=== PATIENT | male | born 1960 | race Caucasian/White ===

== ENCOUNTER → 2019-12-17 15:10 | Outpatient (BNVA) | payer SELFPAY | PROVIDERS: Family Provider Nurse Practitioner Family; PCP Nurse Practitioner Family; Visit Provider Specialist | DX: M25.562 Pain in left knee (principal); M25.561 Pain in right knee; G89.29 Other chronic pain | CPT/HCPCS: 73560; 73565 ==

== ENCOUNTER 2021-09-01 05:36 | Inpatient (IN) | payer MEDICARE, SELFPAY ==
[2021-09-01] VITALS (120 sets, daily range): BP systolic 103–184; BP diastolic 66–111; PULSE 56–104; RESP 9–24; TEMP 36.8; O2SAT 90–97; BMI 26.9
--- NOTE | 2021-09-01 05:39 | ECG_ITS ---
[facility] Test Date: 2021-09-01 Pat Name: Oscar Dotson Department: Room: Gender: Male Nozzleman: : 1960 Requested By: Kings Lobo Order Number: [id number] Reading MD: Hayde Santana M.D. Measurements Intervals [place] Rate: 72 P: 34 ID: 158 QRS: 29 QRSD: 94 T: 48 QT: 418 QTc: 461 Interpretive Statements SINUS RHYTHM NONSPECIFIC ST & T-WAVE ABNORMALITY No previous ECG available for comparison Electronically Signed On 09-02-2021 7:34:37 SNACK STEWARDESS by Hayde Santana M.D. [id number]
--- NOTE | 2021-09-01 05:39 | XRR_ITS ---
PROCEDURE INFORMATION: Exam: XR Chest Exam date and time: 09/01/2021 5:39 AM Age: 60 years old Clinical indication: Radiating and other: Center and radiating to both arms; Patient HX: Woke up this morning to sharp pain in center of chest and radiating to both arms. Slight nausea; Additional info: Cp TECHNIQUE: Imaging protocol: XR of the chest. Views: 1 view. COMPARISON: No relevant prior studies available. FINDINGS: Lungs: No consolidation. Pleural spaces: Unremarkable. No pleural effusion. No pneumothorax. Heart/Mediastinum: No cardiomegaly. Bones/joints: No acute fracture. XR/XR chest 1V portable [id number] IMPRESSION: No acute findings. Radiation Dose CTDIVOL = (mGy): DLP = (mGy-cm)
--- NOTE | 2021-09-01 05:40 | ED_ITS ---
Documented by User: Kings Lobo MD 09/01/21 05:46 HPI - Chest Pain General: Chief Complaint: Chest Pain Stated Complaint: CP Time Seen by Provider: 09/01/21 05:39 Source: patient and EMS Mode of arrival: EMS Limitations: no limitations History of Present Illness: HPI narrative: 60-year-old male states he woke up this morning with sharp pain in the center of his chest radiating to both arms. Patient was given aspirin nitro in route states that his pain is since resolved. He denies any shortness of breath he had some slight nausea denies any di aphoresis. He has no history of heart disease. He is a smoker. Associated symptoms: Deny abdominal pain, dyspnea, fever(s), nausea or vomiting Review of Systems Const: Denies: fever(s), chills, body aches or change in appetite Eyes: Denies: blurry vision or eye discomfort ENMT: Denies: throat pain or dental pain Card: Reports: chest pain Resp: Denies: dyspnea GI: Denies: abdominal pain, nausea, vomiting or diarrhea : Denies: dysuria Musc: Denies: neck pain or back pain Skin/Breast: Denies: rash Neuro: Denies: headache(s) Psych: Denies: depression Jose L/Lymph: Denies: easy bruising All/Imm: Denies: urticaria PFSH ED PFSH: Medical History (Updated 09/04/21 @ 06:41 by Lizandro Wang DO) DJD (degenerative joint disease) Non-ST elevation myocardial infarction (NSTEMI) Surgical History (Updated 09/01/21 @ 08:40 by Gautam Do MD) History of appendectomy History of knee surgery Family History (Updated 09/01/21 @ 08:40 by Gautam Do MD) Other Cancer Dementia Social History Smoking and tobacco status: current every day smoker cigarettes Packs smoked per day: 1 Alcohol intake: never Physical Exam Const: COMMON NORMALS: no acute distress, patient oriented x3 and healthy appearing HENMT: COMMON NORMALS: normocephalic and atraumatic HEAD & SCALP: normocephalic and atraumatic Eye: COMMON NORMALS: Equal, round and reactive pupils present and EOMs intact bilaterally PUPIL: Yes Equal, round and reactive pupils present Neck/C-Spine: COMMON NORMALS: full ROM and supple Chest: COMMONS NORMALS: normal inspection of the chest and normal palpation of entire chest wall Resp: COMMON NORMALS: normal respiratory effort, No retractions, No use of accessory muscles and clear to auscultation bilaterally AUSCULTATION: clear to auscultation bilaterally Cardio: COMMON NORMALS: regular rate, regular rhythm and No murmurs present (Cardio) RATE: regular rate RHYTHM: regular rhythm GI: COMMON NORMALS: Normal to inspection, nondistended, normoactive bowel sounds present, Soft to palpation, non-tender and no masses PALPATION: Yes Soft to palpation Extremity: COMMON NORMALS: normal to inspection and full ROM Neuro: COMMON NORMALS: patient oriented x3, moves all extremities and no focal motor deficits Psych: COMMON NORMALS: mental status grossly normal, Normal thought process present and cooperative THOUGHT PROCESS: Normal thought process present Skin: COMMON NORMALS: no rashes or lesions noted and no wounds GENERAL SKIN EXAM: no rashes or lesions noted Course Vital Signs: Vital signs: Vital Signs Temperature 97.7 F 09/02/21 11:00 Pulse Rate 67 09/02/21 11:00 Respiratory Rate 16 09/02/21 11:00 Blood Pressure 131/86 09/02/21 11:00 Pulse Oximetry 91 09/02/21 11:00 MDM - Chest Pain Lab Data: Labs: Lab Results 09/01/21 09/01/21 09/01/21 04:50 04:50 04:50 WBC 13.9 10^3/uL H 10 ^3/uL (4.0-10.0) RBC 5.26 10^6/uL 10^6 /uL (4.1-5.3) Hgb 15.9 g/dL g/dL (11.7-16.6) Hct 46.6 % % (42.0-52.0) MCV 88.6 fl fl (80-94) MCH 30.2 pg pg (28.0-34.0) MCHC 34.1 g/dL g/dL (30.0-36.0) RDW 12.3 % % (12.1-15.1) Plt Count 236 10^3/cmm 10^3 /cmm (130-400) MPV 12.5 fL H fL (7.4-10.4) Neut % (Auto) 31.7 % % Lymph % (Auto) 58.7 % % [place] % (Auto) 7.7 % % Eos % (Auto) 1.1 % % Baso % (Auto) 0.5 % % Neut # (Auto) 4.41 10^3/uL 10^3 /uL (1.8-7.7) Lymph # (Auto) 8.2 10^3/uL H 10^ 3/uL (0.8-4.8) [place] # (Auto) 1.1 10^3/uL H 10^ 3/uL (0.2-0.9) Eos # (Auto) 0.2 10^3/uL 10^3/ uL (0.0-0.8) Baso # (Auto) 0.1 10^3/uL 10^3/ uL (0.0-0.1) Nucleated RBC % (a uto) 0 % % Nucleated RBCs # 0.0 /100WBC /100W BC Sodium 138 mmol/L mmol/L (136-145) Potassium 3.7 mmol/L mmol/L (3.5-5.1) Chloride 101 mmol/L mmol/L (98-107) Carbon Dioxide 25 mmol/L mmol/L (22-29) Anion Gap 15.7 (5-19) BUN 12 mg/dL mg/dL (8-23) Creatinine 1.1 mg/dL mg/dL (0.7-1.2) GFR Calculation 68.3 mL/min L mL/ min (90-130) Glucose 143 mg/dL H mg/dL (65-115) Estimat Average Gl ucose Hemoglobin A1c Calculated Osmolal ity 288 mOsm/kg mOsm/ kg (285-295) Calcium 9.4 mg/dL mg/dL (8.5-10.5) Total Bilirubin 0.4 mg/dL mg/dL (0.15-1.2) AST 22 U/L U/L (0-40) ALT 27 U/L U/L (0-41) Alkaline Phosphata se 77 IU/L IU/L (40-130) Troponin T Baselin e 20 ng/L H ng/L (0-15) Troponin T 120 Min la posta Delta Troponin T Total Protein 6.6 g/dL g/dL (6.6-8.7) Albumin 4.3 g/dL g/dL (3.5-5.2) Globulin 2.3 g/dL g/dL (1.3-4.6) TSH 09/01/21 09/01/21 09/01/21 04:50 04:50 06:50 WBC RBC Hgb Hct MCV MCH MCHC RDW Plt Count MPV Neut % (Auto) Lymph % (Auto) [place] % (Auto) Eos % (Auto) Baso % (Auto) Neut # (Auto) Lymph # (Auto) [place] # (Auto) Eos # (Auto) Baso # (Auto) Nucleated RBC % (a uto) Nucleated RBCs # Sodium Potassium Chloride Carbon Dioxide Anion Gap BUN Creatinine GFR Calculation Glucose Estimat Average Gl ucose 111 Hemoglobin A1c 5.5 % % (4.0-6.0) Calculated Osmolal ity Calcium Total Bilirubin AST ALT Alkaline Phosphata se Troponin T Baselin e Troponin T 120 Min la posta 80.57 ng/L H ng/L (0-15) Delta Troponin T 60.57 ABS# H* ABS # (0-10) Total Protein Albumin Globulin TSH 2.21 uIU/mL uIU/m L (0.27-4.20) EKG Data^: EKG 1: Attestation: I personally reviewed and interpreted this EKG as follows: EKG interpretation date: 09/01/21 EKG interpretation time: 05:38 Interpretation: nsr hr [address] or t wave qrs 92 qtc 435 Discharge Plan Discharge Patient Disposition: Admitted As Inpatient Admit Provider: Ibis Ellis Clinical Impression: Unstable angina pectoris, Non-ST elevation VA (NSTEMI) Condition: Stable Discharge Diet: Cardiac Discharge Activity: Increase activity as tolerated Coding Level of Care Code ED Sewing Machine Operator Zipper for Chg Fwd Exam Comprehensive Documented by User: Lizandro Wang DO 09/04/21 06:42 HPI - Chest Pain General: Chief Complaint: Chest Pain Stated Complaint: CP Time Seen by Provider: 09/01/21 05:39 History of Present Illness: HPI narrative: 60-year-old male assumed care at change of shift. Patient continues to have chest pain EKG is repeated see below. Dr. Lobo's notes reviewed. [facility] ED PFSH: Medical History (Updated 09/04/21 @ 06:41 by Lizandro Wang DO) DJD (degenerative joint disease) Non-ST elevation myocardial infarction (NSTEMI) Surgical History (Updated 09/01/21 @ 08:40 by Gautam Do MD) History of appendectomy History of knee surgery Family History (Updated 09/01/21 @ 08:40 by Gautam Do MD) Other Cancer Dementia Social History Smoking and tobacco status: current every day smoker cigarettes Packs smoked per day: 1 Alcohol intake: never Physical Exam Const: COMMON NORMALS: no acute distress GENERAL APPEARANCE: cooperative and comfortable ORIENTATION/CONSCIOUSNESS: Yes awake, Yes oriented to person, Yes oriented to place and Yes oriented to time HENMT: COMMON NORMALS: normocephalic, atraumatic and hearing grossly normal bilaterally HEAD & SCALP: normocephalic and atraumatic Neck/C-Spine: COMMON NORMALS: no JVD Resp: COMMON NORMALS: normal respiratory effort, No retractions, No use of accessory muscles and clear to auscultation bilaterally AUSCULTATION: clear to auscultation bilaterally Cardio: COMMON NORMALS: no JVD, regular rate, regular rhythm and No murmurs present (Cardio) RATE: regular rate RHYTHM: regular rhythm GI: COMMON NORMALS: Soft to palpation and No hepatosplenomegaly present AUSCULTATION: Yes normoactive bowel sounds PALPATION: Yes Soft to palpation, No Tenderness to palpation present (GI), No Guarding due to palpation present (GI) and Yes No hepatosplenomegaly present Extremity: COMMON NORMALS: normal to inspection, capillary refill normal, no clubbing, cyanosis or edema, no calf tenderness and no pedal edema Neuro: SENSORIUM/ORIENTATION: Yes oriented to person, Yes oriented to place and Yes oriented to time Skin: COMMON NORMALS: no rashes or lesions noted GENERAL SKIN EXAM: no rashes or lesions noted Course Vital Signs: Vital signs: Vital Signs Temperature 97.7 F 09/02/21 11:00 Pulse Rate 67 09/02/21 11:00 Respiratory Rate 16 09/02/21 11:00 Blood Pressure 131/86 09/02/21 11:00 Pulse Oximetry 91 09/02/21 11:00 MDM - Chest Pain MDM Narrative: Medical decision making narrative: At change of shift patient is continuing to have pain. Care assumed staff report he was complaining of worsening chest pain. Repeat EKG now shows very subtle ST elevation in V5 and 6 where previously there had been ST depression. There is no other ST elevation noted. The degree of ST elevation in V5 and 6 is very small technically does not fully meet criteria. However because it seems to be evolving went ahead and gave him Plavix and heparin. We will start him on a nitro drip we have also given him another dose of morphine. EKG was shown to Dr. Ellis. He agrees he still feels this does not meet criteria for STEMI and recommends continuing work -up. Discussed with hospitalist. Patient continues to have chest pain. We are admitting him we did asked Dr. Gutierrez to come and see the patient. Dr. Ellis did see the patient since he is continue to chest plan is planning on taking directly to the Air Moving Technician. Lab Data: Labs: Lab Results 09/01/21 09/01/21 09/01/21 04:50 04:50 04:50 WBC 13.9 10^3/uL H 10 ^3/uL (4.0-10.0) RBC 5.26 10^6/uL 10^6 /uL (4.1-5.3) Hgb 15.9 g/dL g/dL (11.7-16.6) Hct 46.6 % % (42.0-52.0) MCV 88.6 fl fl (80-94) MCH 30.2 pg pg (28.0-34.0) MCHC 34.1 g/dL g/dL (30.0-36.0) RDW 12.3 % % (12.1-15.1) Plt Count 236 10^3/cmm 10^3 /cmm (130-400) MPV 12.5 fL H fL (7.4-10.4) Neut % (Auto) 31.7 % % Lymph % (Auto) 58.7 % % [place] % (Auto) 7.7 % % Eos % (Auto) 1.1 % % Baso % (Auto) 0.5 % % Neut # (Auto) 4.41 10^3/uL 10^3 /uL (1.8-7.7) Lymph # (Auto) 8.2 10^3/uL H 10^ 3/uL (0.8-4.8) [place] # (Auto) 1.1 10^3/uL H 10^ 3/uL (0.2-0.9) Eos # (Auto) 0.2 10^3/uL 10^3/ uL (0.0-0.8) Baso # (Auto) 0.1 10^3/uL 10^3/ uL (0.0-0.1) Nucleated RBC % (a uto) 0 % % Nucleated RBCs # 0.0 /100WBC /100W BC Sodium 138 mmol/L mmol/L (136-145) Potassium 3.7 mmol/L mmol/L (3.5-5.1) Chloride 101 mmol/L mmol/L (98-107) Carbon Dioxide 25 mmol/L mmol/L (22-29) Anion Gap 15.7 (5-19) BUN 12 mg/dL mg/dL (8-23) Creatinine 1.1 mg/dL mg/dL (0.7-1.2) GFR Calculation 68.3 mL/min L mL/ min (90-130) Glucose 143 mg/dL H mg/dL (65-115) Estimat Average Gl ucose Hemoglobin A1c Calculated Osmolal ity 288 mOsm/kg mOsm/ kg (285-295) Calcium 9.4 mg/dL mg/dL (8.5-10.5) Total Bilirubin 0.4 mg/dL mg/dL (0.15-1.2) AST 22 U/L U/L (0-40) ALT 27 U/L U/L (0-41) Alkaline Phosphata se 77 IU/L IU/L (40-130) Troponin T Baselin e 20 ng/L H ng/L (0-15) Troponin T 120 Min la posta Delta Troponin T Total Protein 6.6 g/dL g/dL (6.6-8.7) Albumin 4.3 g/dL g/dL (3.5-5.2) Globulin 2.3 g/dL g/dL (1.3-4.6) TSH 09/01/21 09/01/21 09/01/21 04:50 04:50 06:50 WBC RBC Hgb Hct MCV MCH MCHC RDW Plt Count MPV Neut % (Auto) Lymph % (Auto) [place] % (Auto) Eos % (Auto) Baso % (Auto) Neut # (Auto) Lymph # (Auto) [place] # (Auto) Eos # (Auto) Baso # (Auto) Nucleated RBC % (a uto) Nucleated RBCs # Sodium Potassium Chloride Carbon Dioxide Anion Gap BUN Creatinine GFR Calculation Glucose Estimat Average Gl ucose 111 Hemoglobin A1c 5.5 % % (4.0-6.0) Calculated Osmolal ity Calcium Total Bilirubin AST ALT Alkaline Phosphata se Troponin T Baselin e Troponin T 120 Min la posta 80.57 ng/L H ng/L (0-15) Delta Troponin T 60.57 ABS# H* ABS # (0-10) Total Protein Albumin Globulin TSH 2.21 uIU/mL uIU/m L (0.27-4.20) Discharge Plan Discharge Patient Disposition: Admitted As Inpatient Admit Provider: Ibis Ellis Clinical Impression: Unstable angina pectoris, Non-ST elevation VA (NSTEMI) Condition: Stable Discharge Diet: Cardiac Discharge Activity: Increase activity as tolerated Coding Level of Care Code ED Sewing Machine Operator Zipper for Deneen Fwd Exam Comprehensive
--- NOTE | 2021-09-01 05:46 | ECG_ITS ---
[facility] Test Date: 2021-09-01 Pat Name: Oscar Dotson Department: Room: Gender: Male Fabric Designer: : 1960 Requested By: Kings Lobo Order Number: [id number] Carisa MD: Hadye Santana M.D. Measurements Intervals [place] Rate: 73 P: 10 VA: 160 QRS: 32 QRSD: 92 T: 36 QT: 409 QTc: 452 Interpretive Statements SINUS RHYTHM MINIMAL VOLTAGE CRITERIA FOR LVH, CONSIDER NORMAL VARIANT [MEETS CRITERIA IN ONE OF: R(aVL), S(V1), R(V5), R(V5/V6)+S(V1)] NONSPECIFIC ST & T-WAVE ABNORMALITY No previous ECG available for comparison Electronically Signed On 09-02-2021 7:34:54 FOREMAN OR SUPERVISOR AND OPERATOR by Hayde Santana M.D. [id number]
[2021-09-01] MEDS: nitroglycerin 0.4 mg sublingual Tablet SUBLINGUAL (05:50)
[2021-09-01 05:59] LABS: Basophils # 0.1 10^3/uL (0.0-0.1); Basophils % 0.5 %; Eosinophils # 0.2 10^3/uL (0.0-0.8); Eosinophils % 1.1 %; Hematocrit 46.6 % (42.0-52.0); Hemoglobin 15.9 g/dL (11.7-16.6); Lymphocytes # 8.2 10^3/uL (0.8-4.8); Lymphocytes % 58.7 %; Mean Corpuscular HGB Conc 34.1 g/dL (30.0-36.0); Mean Corpuscular Hemoglobin 30.2 pg (28.0-34.0); Mean Corpuscular Volume 88.6 fl (80-94); Mean Platelet Volume 12.5 fL (7.4-10.4); Monocytes # 1.1 10^3/uL (0.2-0.9); Monocytes % 7.7 %; Neutrophils # 4.41 10^3/uL (1.8-7.7); Neutrophils % 31.7 %; Nucleated Red Blood Cells % 0 %; Platelet Count 236 10^3/cmm (130-400); Red Blood Count 5.26 10^6/uL (4.1-5.3); Red Cell Distribution Width 12.3 % (12.1-15.1); White Blood Count 13.9 10^3/uL (4.0-10.0)
[2021-09-01] MEDS: heparin 5,000 unit/mL INJ 1 mL 4000 UNIT IVP (06:03)
[2021-09-01] MEDS: clopidogrel 300 mg Tablet 600 MG PO (06:04)
[2021-09-01] MEDS: ondansetron 2 mg/ML SDV 2 mL 4 MG IVP (06:04)
[2021-09-01] MEDS: morphine 4 mg/mL SDV 1 mL IVP ×2 (06:04→06:38)
[2021-09-01] MEDS: nitroglycerin drip 50 MG/250 ML PREMIX IV (06:11)
[2021-09-01 06:12] LABS: Alanine Aminotransferase 27 U/L (0-41); Albumin Level 4.3 g/dL (3.5-5.2); Alkaline Phosphatase 77 IU/L (40-130); Anion Gap 15.7 (5-19); Aspartate Amino Transferase 22 U/L (0-40); Blood Urea Nitrogen 12 mg/dL (8-23); Calcium 9.4 mg/dL (8.5-10.5); Carbon Dioxide 25 mmol/L (22-29); Chloride 101 mmol/L (98-107); Globulin 2.3 g/dL (1.3-4.6); Glomerular Filtration Rate 68.3 mL/min (90-130); Glucose 143 mg/dL (65-115); Osmolality Calculated 288 mOsm/kg (285-295); Potassium 3.7 mmol/L (3.5-5.1); Sodium 138 mmol/L (136-145); Total Bilirubin 0.4 mg/dL (0.15-1.2); Total Protein 6.6 g/dL (6.6-8.7)
[2021-09-01 06:23] LABS: Slide Review Slide Review Perform
[2021-09-01 06:31] LABS: Troponin(5th) Baseline 20 ng/L (0-15)
[2021-09-01 07:14] LABS: Troponin 5 2HR 80.57 ng/L (0-15)
[2021-09-01 07:17] LABS: Troponin 5 2HR Delta 60.57 ABS# (0-10)
[2021-09-01] MEDS: morphine 4 mg/mL SDV 1 mL 2 MG IVP (07:24)
--- NOTE | 2021-09-01 07:39 | ECG_ITS ---
[facility] Test Date: 2021-09-01 Pat Name: Oscar Dotson Department: Room: Gender: Male Wheel Press Clerk: : 1960 Requested By: Kings Lobo Order Number: [id number] Carisa MD: Hayde Santana M.D. Measurements Intervals [place] Rate: 59 P: -3 OK: 155 QRS: 23 QRSD: 97 T: -50 QT: 444 QTc: 442 Interpretive Statements SINUS BRADYCARDIA WITH OCCASIONAL VENTRICULAR PREMATURE COMPLEXES NONSPECIFIC ST & T-WAVE ABNORMALITY Compared to ECG 09/01/2021 05:51:02 Ventricular premature complex(es) now present Sinus rhythm no longer present T-wave abnormality still present Electronically Signed On 09-02-2021 7:41:56 BREAKFAST MANAGER by Hayde Santana M.D. [id number]
--- NOTE | 2021-09-01 08:21 | USCV_ITS ---
Edwardwillis Oscar Age: 60 Gender: M : 1960 Exam Date: 09/01/2021 13:56 Ordering Phys: Gautam Do MD Technologist: Daiana Fairbanks Exam Location: [facility] – [place] Indication: AK WITH STENT PLACEMENT BP: 103 / 69 HR: 72 Rhythm: Sinus Technical Quality: Adequate MEASUREMENTS (Male / Female) Normal Values 2D ECHO LV Diastolic Diameter PLAX 4.6 cm 4.2 - 5.9 / 3.9 - 5.3 cm LV Systolic Diameter PLAX 3.1 cm LV Chamber Size 4.4 cm IVS Diastolic Thickness 1.2 cm 0.6 - 1.0 / 0.6 - 0.9 cm IVS Systolic Thickness 1.5 cm LVPW Diastolic Thickness 1.3 cm 0.6 - 1.0 / 0.6 - 0.9 cm LVPW Systolic Thickness 1.4 cm RV Chamber Size 3.3 cm LVOT Diameter 2.0 cm LV Ejection Fraction 2D Teich 59.9 % LV Ejection Fraction MOD 2C 63.4 % LV Ejection Fraction 2C AL 61.7 % LA Diameter 3.5 cm LA Width 3.5 cm LA Height 4.6 cm RA Width 3.4 cm RA Height 4.4 cm Aorta at Sinotubular Diameter 3.4 cm M-MODE LV Diastolic Diameter MM 4.7 cm 4.2 - 5.9 / 3.9 - 5.3 cm LV Systolic Diameter MM 2.9 cm LV Ejection Fraction MM Teich 69.0 % IVS Diastolic Thickness MM 0.8 cm 0.6 - 1.0 / 0.6 - 0.9 cm IVS Systolic Thickness MM 1.3 cm LVPW Diastolic Thickness MM 0.7 cm 0.6 - 1.0 / 0.6 - 0.9 cm LVPW Systolic Thickness MM 1.5 cm Aortic Annulus Diameter 3.8 cm LA Ao Ratio MM 1.2 MV E Point Septal Separation 0.5 cm DOPPLER AV Peak Velocity 193.0 cm/s LVOT Peak Velocity 76.0 cm/s AV Area Cont Eq vti 1.2 cm squared AV Area Cont Eq pk 1.2 cm squared MV Area PHT 3.1 cm squared Mitral E to A Ratio 1.0 MV E' Velocity 37.5 cm/s Mitral E to MV E' Ratio 8.6 Mitral E to LV E' Lateral Ratio 8.8 Mitral E to LV E' Septal Ratio 8.4 TR Peak Velocity 232.8 cm/s TR Peak Gradient 21.7 mmHg TR Mean Velocity 169.2 cm/s TR Mean Gradient 13.9 mmHg TR Velocity Time Integral 69.6 cm TV Peak E Velocity 57.0 cm/s Right Atrial Pressure 3.0 mmHg Pulmonary Artery Systolic Pressu 24.7 mmHg PV Peak Velocity 55.0 cm/s RV Acceleration Time 0.1 s RV Ejection Time 0.3 s RV AcT/ET 0.2 FINDINGS Left Ventricle Normal LV size ejection fraction of 60%. No gross wall motion abnormalities noted. Right Ventricle The right ventricle is normal in size and function. Right Atrium The right atrium is normal in size. Left Atrium The left atrium is normal in size. Mitral Valve Mild mitral annular calcification. Mild mitral valve regurgitation. Aortic Valve Minimally thickened aortic valve.mild aortic valve regurgitation. Tricuspid Valve Trace tricuspid valve regurgitation. Pulmonic Valve No gross abnormalities noted Pericardium Normal pericardium without effusion. Aorta Normal ascending aorta dimension. CONCLUSIONS Normal LV size ejection fraction of 60%. No gross wall motion abnormalities noted. Mild mitral annular calcification. Mild mitral valve regurgitation. Features of aortic valve sclerosis. Mild aortic valve regurgitation. Trace tricuspid valve regurgitation. Estimated pulmonary artery peak systolic pressure 25 mmHg. There is no pericardial effusion. There are no intracardiac masses. No similar previous studies are available for comparison Dr Heather Stephens MD [facility] (Electronically Signed) Final Date: 01 September 2021 17:35 S
--- NOTE | 2021-09-01 08:29 | P.HP_ITS ---
Providers/Chief Complaint Primary Care Provider: Mukesh Obando Chief Complaint: CP History of Present Illness Oscar Dotson is a 60 year old male who presented to the hospital via EMS with concerns of chest discomfort. He reports he had some chest discomfort radiating down his left arm, described as tight or pressure yesterday after going to [employer]. He initially thought this was heartburn and it went away. He was awakened from sleep around 3 AM or so with similar discomfort that was severe. In route he received some nitroglycerin, as well as an aspirin which helped some. At the emergency department he was placed on a nitroglycerin drip, and heparinized. He was also loaded with Plavix. Patient reports the discomfort is improved, but still present around 12/31. He has never had a history of coronary disease. Did have diuresis with the no shortness of breath or nausea. Does have a personal history of Covid, back in November. Has been vaccinated with one in the series. No current cough or fever. Review of Systems General: Reports: 10 or more systems reviewed and unremarkable except in HPI and below Const: Denies: fever(s) Eyes: Denies: change in vision ENMT: Denies: throat pain Card: Reports: chest pain Resp: Denies: dyspnea GI: Denies: abdominal pain, nausea or vomiting : Denies: flank pain Musc: Denies: neck pain Skin/Breast: Denies: rash Neuro: Denies: headache(s) Psych: Denies: anxiety Endo: Denies: polyuria Jose L/Lymph: Denies: easy bruising All/Imm: Denies: urticaria Medications/Allergies Home Medications Medication Instructions Recorded Confirmed Last Taken Type aspirin [Aspir-81] 324 mg PO ONCE 09/01/21 09/01/21 09/01/21 History ibuprofen 600 mg PO Q4H PRN 09/01/21 09/01/21 Unknown History Allergies Allergy/AdvReac Type Severity Reaction Status Date / Time No Known Allergies Allergy Verified 09/01/21 08:38 PFSH Acute PFSH: Medical History (Updated 09/01/21 @ 08:45 by Gautam Do MD) DJD (degenerative joint disease) Surgical History (Updated 09/01/21 @ 08:40 by Gautam Do MD) History of appendectomy History of knee surgery Family History (Updated 09/01/21 @ 08:40 by Gautam Do MD) Other Cancer Dementia Social History Smoking and tobacco status: current every day smoker cigarettes Packs smoked per day: 1 Alcohol intake: never Vitals/I&O/Wt Last Vital Signs Pulse 60 09/01/21 07:31 Resp 18 09/01/21 07:31 BP 103/69 09/01/21 07:31 Pulse Ox 92 09/01/21 07:31 08/31/21 09/01/21 09/01/21 22:59 06:59 14:59 Intake Total 1.1 / 1.1 Balance 1.1 .1 Weight last 48 hrs Weight 95.254 kg Physical Exam Narrative: EXAM NARRATIVE: General exam,no obvious distress HEENT: Pupils equally round. Oropharynx clear. Neck is supple no lymphadenopathy or thyromegaly Cardiovascular regular rate and rhythm without murmur, no S3 or S4 Lungs clear Abdomen is soft with positive bowel sounds. No obvious organomegaly exam is deferred Extremities no cyanosis clubbing or edema, cap refill brisk Skin no rash Neuro no focal deficits. Data : 09/01/21 04:50 09/01/21 04:50 Other data: sinus rhythm, normal axisEKG, one PVC V2 through 6 as well as inferiorly Chest x-ray no infiltrate Troponin baseline 20 with repeated 120 minutes of 80 LFTs normal A&P Assessment and plan (1) Chest pain: Significant elevation in troponin Status: Acute (2) Non-ST elevation myocardial infarction (NSTEMI): Received aspirin still having active chest discomfort Nitroglycerin drip initiated, Plavix load. Secondary to intermittent bradyc ardia not candidate for beta-ford Full anticoagulation with heparin drip Cardiology consultation Echocardiogram Initiate statin, check lipid profile tomorrow Consider LANE-I if BP tolerates. Status: Acute (3) Hyperglycemia: Check HGBA1C Status: Acute (4) Tobacco dependency: Encourage abstinence. Status: Acute Additional A&P Information Full code Heparin for DVT prophylaxis Protonix for GI prophylaxis Attestations Medical Necessity Statement*: Will need greater than 2 midnight stay secondary to NSTEMI Time Spent in Patient Care: Greater than 35 minutes Coding Level of Care Code Acute Mold Yarn Supervisor for Deneen Morgan Diagnoses Chest pain R07.9 Non-ST elevation myocardial infarction (NSTEMI) I21.4 Hyperglycemia R73.9 Tobacco dependency F17.200
[2021-09-01] MEDS: heparin drip 25,000 UNIT/500 ML PREMIX 27 UNIT IV (08:41)
[2021-09-01 08:51] LABS: Estmated Average Glucose 111; Hemoglobin A1C 5.5 % (4.0-6.0)
--- NOTE | 2021-09-01 08:54 | XACV_ITS ---
Exam Room: [facility] Ht: 188 cm Wt: 95 kg BSA: 2.24 m2 Gender: Male : 1960 Any Known Allergies: No known allergies Exam Priority: Routine Indication(s): - Non-ST elevation MT Procedure(s): Procedure Description: Diagnostic procedure Procedure Description: PCI procedure Procedure Description: Drug Eluting Coronary Stent Procedure Description: PTCA Procedure Description: Coronary Angiography Rhonda RIOS; Diagnostic Cath Status: Urgent Diagnostic Findings * Left Main has no disease. * Proximal Left Anterior Descending to Mid Left Anterior Descending: moderate 50% stenosis, KELBY: 3 flow. * Mid Right Coronary Artery: mild 40% stenosis, KELBY: 3 flow. * Proximal Circumflex to Mid Circumflex: subtotal occlusion, KELBY: 2 flow. * Coronary angiography shows right dominance. PCI Status: Urgent PCI Indication: NSTE - ACS Interventional Findings * Proximal Circumflex to Mid Circumflex: 99% stenosis treated with a Drug Eluting Stent. 0% residual stenosis, KELBY: 3 flow. Conclusions 1. There is subtotal occlusion coronary artery disease with three vessel disease. 2. Proximal Circumflex to Mid Circumflex was treated with a Drug Eluting Stent. Recommendations * Continue current medical management and risk factor modification. Interventional RX Recommendation: PCI w/o planned CABG Diagnostic RX Recommendation: PCI w/o planned CABG Pressures Phase:Rest AO : 90 / 68 ( 79 ) @ 7:28:00 AM 120 / 76 ( 96 ) @ 7:35:00 AM 104 / 68 ( 84 ) @ 7:43:00 AM 101 / 70 ( 84 ) @ 7:58:00 AM Clinical Evaluation EBL: 5mL-10mL Procedural Details Pre-Procedure Time Out. Identified patient by full name and date of as verbalized by the patient/guarantor. Does the consent match the physician's order: Yes. Accurate & Complete Informed Consent: Yes, verbal consent obtained by two RNs and MD. Inpatient/Outpatient History & Physical on Chart: Yes. If H&P is completed, is and addenduem needed: No. Visualize and Verify Site with Patient/Guarantor: N/A. Relevant Radiology Images available: Yes. Pre-op teaching completed and patient verbalized understanding. The risks, benefits, and alternatives of sedation and/or procedure were discussed by physician. The patient agrees to continue. Procedure started. [facility] Clinical Fraility Score: 3: Managing Well. Community Health Nurse Staff Indications: ACS <= 24 hours/NSTEMI. Chest Pain Symptom Assessment: Typical Angina Symptoms. Cardiovascular Instability: Yes, if yes, Persistant Ischemic Symptoms. Correct patient, site and procedure confirmed by cath team. Current diagnosis: NSTEMI. PERRLA. Strong, equal hand tour bus driver/guide bilaterally. Lungs clear x 5 lobes. IV Site on Arrival: 18 gauge in the right anticubital. IV Site on Arrival: 20 gauge in the left anticubital. IV Fluids: 0.9% NaCl at KVO. 0 mL infused prior to cardiac cath rn. Pre Procedural Pulses: bilateral radial was 3+. Oxygen started at 2liters/min via nasal canula. right groin was prepped with chloroprep then draped in the usual sterile fashion. right radial was prepped with chloroprep then draped in the usual sterile fashion. Physician notified. Baseline sample Acquired. HR: 78 BPM. Patient's spouse updated by Dr. Ellis on arrival to the cardiac cath rn. She will be in the radiology waiting room at the completion of the case. Equipment: 6F - Radial. Cardiac Cath Pack. ACIST Manifold Kit Model BT 2000. Heparinized Saline (2 units/mL), 1000 mL bag. Physician arrived. Current Diagnosis : NSTEMI. Yolanda Luu RN Circulating. Physician scrubbed in. Immediate Pre-Procedure Time Out. Correct Patient: Yes; Correct Procedure: Yes; Correct Site: Yes; Correct Patient Position: Yes; Correct Supplies: Yes; Dried Flammable Prep: Yes; Blood Products Available: N/A. Lidocaine 1% infiltrated to the right radial. Arterial access obtained. ACT drawn. Results 97 seconds. Therapeutic limits - pre-heparin administration 90-150 seconds and monitoring heparin during a vascular procedure >250 seconds. A 5 senegalese TIG catheter in over wire. Multiple views taken of left coronary artery. Catheter redirected to the RCA. Unable to Cannulate RCA. Catheter removed over the standard wire. A 5 senegalese JR4 catheter in over wire. Multiple views taken of right coronary artery. Catheter removed over the standard wire. Diagnostic Complete, starting intervention. PCI Indication: NSTE. Patient's family updated. 6 senegalese XB 3.5 guide catheter was inserted over the wire. ACT drawn. Results 167 seconds. Therapeutic limits - pre-heparin administration 90-150 seconds and monitoring heparin during a vascular procedure >250 seconds. [facility] guidewire was advanced through the guide catheter to lesion in the mid Circ. A second [facility] wire was advanced through the guide catheter to the OM branch. [facility] wire out of the OM. Inflation number : 1 A AB TREK 2.50X12 RX BALLOON was prepped and advanced across the Mid CX , then inflated to 10 KIM for 0:26 seconds. Inflation number: 2 The AB TREK 2.50X12 RX BALLOON was reinflated across the Mid CX, to 0 KIM for 0:16 seconds. Inflation Number : 3 A MDT R JOY 2.75X15 PASHA -Lot Number# [id number] was prepped and advanced across the Mid CX. The stent was deployed at 12 KIM for 0:28 seconds. Exp 02/25/2024. Stent balloon out over wire. Inflation number : 4 A MDT NC EUPHORA RX [id number] BALLOON was prepped and advanced across the Mid CX , then inflated to 12 KIM for 0:19 seconds. Inflation number: 5 The MDT NC EUPHORA RX [id number] BALLOON was reinflated across the Mid CX, to 10 KIM for 0:12 seconds. Balloon out. Results checked. Wire out. ACT drawn. Results 320 seconds. Therapeutic limits - pre-heparin administration 90-150 seconds and monitoring heparin during a vascular procedure >250 seconds. Guide catheter out. A TR Band was successful obtaining hemostatsis at the Right Radial artery insertion site. Physician acrubbed out. TR band placed. Hemostasis obtained. Post Procedure: Pulses reassessed and unchanged. PERRLA. Strong, equal hand tour bus driver/guide bilaterally. No VTE prophylaxis required. Medication's Wasted: Lidocaine 1% = 16 mL. Total IV fluids: 68 mL. Post-op diagnosis: Mid CX stenting for subtotal occlusion. Complications: none. Estimated blood loss: 5mL-10mL. Procedure completed. Patient transferred by wheelchair to ICU. Vital chart was stopped. Medication's Wasted: Heparin = 4000 units. Access Site Site: Right Radial artery Sheath Size: 6 Fr Hemostasis Method: TR Band Hemostasis Success: Successful Procedure Medications Start: 9:24 AM Stop: 9:24 AM Medication: Nitrogylcerin Amount: 200 mcg Route: I.A. Start: 9:26 AM Stop: 9:26 AM Medication: Heparin Amount: 8000 units Route: I.V. Start: 9:15 AM Stop: 9:15 AM Medication: Versed Amount: 1 mg Route: I.V. Start: 9:15 AM Stop: 9:15 AM Medication: Fentanyl Amount: 50 mcg Route: I.V. Start: 9:29 AM Stop: 9:29 AM Medication: Versed Amount: 1 mg Route: I.V. Start: 9:44 AM Stop: 9:44 AM Medication: Heparin Amount: 4000 units Route: I.V. Start: 10:04 AM Stop: 10:04 AM Medication: Nitrogylcerin Amount: 200 mcg Route: I.C. I, the attending physician, have reviewed and verified all procedure medications. Yes, all medications given per verbal order History/Risk Factors Hypertension: No Dyslipidemia: No Peripheral Arterial Disease (PAD): No Myocardial Infarction (MT): No Obesity: No Renal Disease: No Tobacco Use: Current/Recent(w/in 1 year) Prior Interventions PCI: No CABG: No Valve Surgery: No Report Signatures Finalized by Ibis Ellis MD on 09/15/2021 07:03 PM
--- NOTE | 2021-09-01 08:57 | P.CONIM_ITS ---
Providers/Reason For Consult Consulting Physician/Specialty*: Interventional cardiology Reason for Consult*: Unstable non-ST elevation FL Attending Physician: Ibis Ellis MD Primary Care Provider: Mukesh Obando History of Present Illness History of Present Illness Oscar Dotson is a 60 year old male presented with chest pain after calling 911, initially ST elevation FL pager was alerted upon seeing twelve-lead EKG I called it off as there was no ST elevation FL there was a repolarization abnormality in the anterior and inferior leads no prior EKG to compare. Patient story is pretty significant and suspicious for acute coronary syndrome. He is a smoker for the last 30 years. Last night around 7 PM while walking in the store patient developed sharp chest pain to the point that it knocked the wind out of him. He went home pain got little better he went to sleep around 2 AM he was awakened by the chest pain radiating to arm he sat there for 1 hour pain got better he tried to go back to sleep but again it hit him hard, it is then he called 911 and come to the emergency room. He was treated as per ACS protocol he was started on heparin nitro drip loaded with 600 mg of Plavix. He was ruled in for non-ST elevation FL. Since patient continues to have off-and-on chest pain with mild ST depression we decided to take him to the [facility] for early invasive therapy. Patient and his daughter by bedside has been explained all risk benefit and alternative for the procedure. They understand the risk for stroke contrast-induced nephropathy urgent emergent bypass surgery vascular injury vascular surgery major minor bleed infection hematoma. Effect proceed with it. Candidate for DAPT. Meds/Allergies Home Medications and Allergies Home Medications Medication Instructions Recorded Confirmed Last Taken Type aspirin [Aspir-81] 324 mg PO ONCE 09/01/21 09/01/21 09/01/21 History ibuprofen 600 mg PO Q4H PRN 09/01/21 09/01/21 Unknown History Allergies Allergy/AdvReac Type Severity Reaction Status Date / Time No Known Allergies Allergy Verified 09/01/21 08:38 Current Medications Current Medications Generic Name Dose Route Start Last Admin Trade Name Freq PRN Reason Stop Dose Admin Nitroglycerin/Dextrose 50 mg in 250 mls @ 0 mls/hr 09/01/21 06:00 09/01/21 06:27 Nitroglycerin Drip IV 30 mcg/min .Q0M JACKI 9 mls/hr Titration Protocol Per Protocol Heparin Sodium/Sodium Chloride 25,000 unit in 500 mls @ 0 mls/hr 09/01/21 07: 45 09/01/21 08:41 Heparin Drip IV 14.17 unit/kg/hr .Q0M JACKI 27 mls/hr Administration Protocol Per Protocol PFSH Acute PFSH: Medical History (Updated 09/01/21 @ 08:45 by Gautam Do MD) DJD (degenerative joint disease) Surgical History (Updated 09/01/21 @ 08:40 by Gautam Do MD) History of appendectomy History of knee surgery Family History (Updated 09/01/21 @ 08:40 by Gautam Do MD) Other Cancer Dementia Social History Smoking and tobacco status: current every day smoker cigarettes Packs smoked per day: 1 Alcohol intake: never Vitals/I&O/Wt Last Vital Signs Pulse 60 09/01/21 07:31 Resp 18 09/01/21 07:31 BP 103/69 09/01/21 07:31 Pulse Ox 92 09/01/21 07:31 08/31/21 09/01/21 09/01/21 22:59 06:59 14:59 Intake Total 1.1 / 1.1 Balance 1.1 / 1.1 Weight last 48 hrs Weight 210 lb Physical Exam Narrative: EXAM NARRATIVE: GENERAL: Patient is alert, awake and oriented x3. NECK: No jugular vein distension. HEENT: No cyanosis. No icterus. No pallor. HEART: Regular S1 and S2. No murmur, rub or gallop. LUNGS: Clear to auscultate bilaterally. ABDOMEN: Soft, nontender and nondistended. Positive bowel sounds. No guarding, rebound or tenderness. CENTRAL NERVOUS SYSTEM: Grossly nonfocal. EXTREMITIES: Lower extremities without edema bilaterally. A&P Assessment and plan (1) Non-ST elevation myocardial infarction (NSTEMI): Patient has unstable non-ST elevation FL with stuttering chest pain and dynamic EKG changes we will opt for early invasive strategy. He will be taken to the [facility] as above. Further plan will be devised as per progress of the patient. Status: Acute (2) Tobacco dependency: Advised quitting smoking. Status: Acute (3) Hyperglycemia: We will start patient on statin Status: Acute Consult Attestations Medical Necessity Statement: I am expecting his stay not to cross more than 2 midnights he will be observation for 24-hour Coding Level of Care Code Acute Salt Maker for Deneen Fwd Diagnoses Non-ST elevation myocardial infarction (NSTEMI) I21.4 Tobacco dependency F17.200 Hyperglycemia R73.9
[2021-09-01 08:58] LABS: Thyroid Stimulating Hormone 2.21 uIU/mL (0.27-4.20)
--- NOTE | 2021-09-01 09:09 | W.PM.OPSUD ---
Surgery/Procedure H&P Update DATE OF PROCEDURE: September 01, 2021 DATE H&P PERFORMED: 09/01/21 H&P UPDATE INFORMATION: I have reviewed H&P completed within last 30 days and I have examined patient prior to procedure PREOP DIAGNOSIS: Non-ST elevation CO/unstable due to persistent ischemia PATIENT REASSESSED PRIOR TO SEDATION, WITH NO CHANGE NOTED: Yes PHYSICAL EXAM: alert, oriented x 3 and clear to auscultation bilaterally AIRWAY EVAL/ANESTHESIA PLAN: ASA II and Risks, benefits & alternatives of sedation and/or procedure discussed
--- NOTE | 2021-09-01 11:39 | ECG_ITS ---
[facility] Test Date: 2021-09-01 Pat Name: Oscar Dotson Department: Room: Gender: Male Canvas Cutter Hand: : 1960 Requested By: Kings Lobo Order Number: [id number] Carisa MD: Hayde Santana M.D. Measurements Intervals [place] Rate: 53 P: 42 OH: 153 QRS: 35 QRSD: 89 T: -24 QT: 490 QTc: 464 Interpretive Statements SINUS BRADYCARDIA WITH OCCASIONAL VENTRICULAR PREMATURE COMPLEXES LEFT VENTRICULAR HYPERTROPHY AND ST-T CHANGE [VOLTAGE CRITERIA PLUS ST/T ABNORMALITY] Compared to ECG 09/01/2021 06:27:20 Left ventricular hypertrophy now present ST (T wave) deviation now present T-wave abnormality no longer present Electronically Signed On 09-02-2021 7:41:36 PEWTER FINISHER by Hayde Santana M.D. [email or web address]
[2021-09-01] MEDS: pantoprazole DR 40 mg Tablet PO (12:17)
--- NOTE | 2021-09-01 13:25 | PC.NURSE ---
report given to STANISLAV Evans. She is assuming care.
--- NOTE | 2021-09-01 14:11 | PC.NURSE ---
aother 2ml removed from t.r. band
--- NOTE | 2021-09-01 16:46 | PC.NURSE ---
1345: no oozing from right radial cath site, no hematoma noted.
--- NOTE | 2021-09-01 16:54 | PC.NURSE ---
1600: titrated removal of air from t.r. bnd until off at this time. no oozing or hematoma noted. bandaide applied.
--- NOTE | 2021-09-01 16:58 | PC.NURSE ---
1615. no change in right radial cath site.
--- NOTE | 2021-09-01 16:59 | PC.NURSE ---
no change in right cath site. instructed to not use right arm, hand to bear wt.
[2021-09-01] MEDS: atorvastatin 40 mg Tablet PO (20:22)
[2021-09-01] MEDS: sodium chloride 0.9% 1,000 ML 100 ML IV (20:22)
[2021-09-02] VITALS (46 sets, daily range): BP systolic 108–146; BP diastolic 76–95; PULSE 58–95; RESP 10–22; TEMP 36.5–36.9; O2SAT 90–96
[2021-09-02 04:35] LABS: Basophils # 0.1 10^3/uL (0.0-0.1); Basophils % 0.5 %; Eosinophils # 0.1 10^3/uL (0.0-0.8); Eosinophils % 0.4 %; Hemoglobin 14.4 g/dL (11.7-16.6); Lymphocytes # 4.9 10^3/uL (0.8-4.8); Mean Corpuscular HGB Conc 34.3 g/dL (30.0-36.0); Mean Corpuscular Hemoglobin 30.4 pg (28.0-34.0); Mean Corpuscular Volume 88.8 fl (80-94); Mean Platelet Volume 11.6 fL (7.4-10.4); Monocytes # 0.8 10^3/uL (0.2-0.9); Monocytes % 6.7 %; Neutrophils # 5.89 10^3/uL (1.8-7.7); Neutrophils % 50.2 %; Nucleated Red Blood Cells % 0 %; Platelet Count 197 10^3/cmm (130-400); Red Blood Count 4.73 10^6/uL (4.1-5.3); Red Cell Distribution Width 12.6 % (12.1-15.1); White Blood Count 11.7 10^3/uL (4.0-10.0)
[2021-09-02 04:58] LABS: Cholesterol 158 mg/dL (0-200); HDL Cholesterol 31 mg/dL (60-100); LDL Cholesterol Calculated 99 mg/dL (50-129); LDL HDL Ratio 3.19 RATIO (0.00-3.22); Triglycerides 142 mg/dL (0-150)
[2021-09-02 04:59] LABS: Alanine Aminotransferase 46 U/L (0-41); Albumin Level 3.9 g/dL (3.5-5.2); Alkaline Phosphatase 63 IU/L (40-130); Anion Gap 13.1 (5-19); Aspartate Amino Transferase 171 U/L (0-40); Blood Urea Nitrogen 11 mg/dL (8-23); Calcium 8.7 mg/dL (8.5-10.5); Carbon Dioxide 24 mmol/L (22-29); Chloride 104 mmol/L (98-107); Creatinine Clr Calc Pharmacy 107.9279; Globulin 2.2 g/dL (1.3-4.6); Glomerular Filtration Rate 86.1 mL/min (90-130); Glucose 103 mg/dL (65-115); Osmolality Calculated 284 mOsm/kg (285-295); Potassium 4.1 mmol/L (3.5-5.1); Sodium 137 mmol/L (136-145); Total Bilirubin 0.5 mg/dL (0.15-1.2); Total Protein 6.1 g/dL (6.6-8.7)
--- NOTE | 2021-09-02 05:22 | PC.NURSE ---
Shift Note Frequent safety and comfort rounds continue. Pt did not report any chest pain throughout the night. Orders and nursing care completed as indicated. Patient monitored for response to intervention and treatment. Education provided includes symptoms to report post heart cath. Patient and farm loan representative verbalized understanding.
[2021-09-02 06:32] LABS: Slide Review Slide Review Perform
--- NOTE | 2021-09-02 07:55 | PC.NURSE ---
Shift Note Frequent safety and comfort rounds continue. Orders and/or nursing care completed as indicated. Patient monitored for response to intervention and treatment(s). Education provided includes[stent care and medication compliance]. Patient and/or credit representative [Pt verbally stated he understood]. Will continue to monitor. Received bed side shift report from off going nurse. Pt's plan of care reviewed. Pt resting in bed. Respirations are even and unlabored. No s/sx of distress noted. Pt is alert and oriented and able to make his own decisions. Pt denies any pains or concerns at this time. Pt states he feels better than he has in awhile. Bed in lowest and locked position, call light and water within reach, x's 2 rails up. Will continue to monitor pt.
--- NOTE | 2021-09-02 08:12 | PM.DCS ---
Discharge Providers Date of Admission: 09/01/21 09:37 Date of Discharge: September 02, 2021 Attending Provider at Admission: Ibis Ellis MD Attending Provider at Discharge: Ibis Ellis MD Primary Care Provider: Mukesh Obando Diagnoses at Discharge Discharge Diagnosis (1) Non-ST elevation myocardial infarction (NSTEMI): Status: Acute (2) Tobacco dependency: Status: Acute (3) Hyperglycemia: Status: Acute Reason for Visit Reason for Visit: CP Hospital Course Hospital Course Mr. Dotson is a 60-year-old white male who presented to the hospital with significant chest discomfort. Troponin elevation occurred consistent with a non-ST elevation myocardial infarction. He was anticoagulated, placed on a statin, given Plavix and aspirin and cardiology was consulted. They performed an angiogram on September 01. Please see their report for details. Circumflex was intervened with drug-eluting stent from a right radial approach. The following morning he was chest discomfort free with stable vital signs and excellent laboratory. It was thought he could be discharged home. No evidence of hematoma right wrist. Echocardiogram was also done during his hospital stay which was largely normal. He was counseled not to smoke. Liver function tests were slightly elevated on day of discharge thought to be secondary to his non-ST elevation myocardial infarction. These can be followed up as an outpatient. They do not preclude continued statin treatment. Low-dose beta-ford was added on discharge. Physical Exam Narrative: EXAM NARRATIVE: General exam no distress Neck is supple Cardiovascular regular rate and rhythm Lungs clear Abdomen is soft Extremities no cyanosis clubbing or edema, no hematoma right wrist. Discharge Data Data Completed and Pending: Completed Studies During Hospitalization Category Date Time Status XR chest 1V azar ble [id number] Stat Exams 09/01/21 05:39 Completed CV. echo complete * [id number] Routine Ultrasound 09/01/21 08:21 Completed Pending at discharge Category Date Time Status CAUSTIC STRENGTH INSPECTOR request for service Routin e Exams 09/01/21 08:54 Taken Labs from last 24 hours 09/02/21 09/02/21 09/02/21 04:20 04:20 04:20 WBC 11.7 H RBC 4.73 Hgb 14.4 Hct 42.0 MCV 88.8 MCH 30.4 MCHC 34.3 RDW 12.6 Plt Count 197 MPV 11.6 H Neut % (Auto) 50.2 Lymph % (Auto) 42.0 [place] % (Auto) 6.7 Eos % (Auto) 0.4 Baso % (Auto) 0.5 Neut # (Auto) 5.89 Lymph # (Auto) 4.9 H [place] # (Auto) 0.8 Eos # (Auto) 0.1 Baso # (Auto) 0.1 Nucleated RBC % (a uto) 0 Nucleated RBCs # 0.0 Sodium 137 Potassium 4.1 Chloride 104 Carbon Dioxide 24 Anion Gap 13.1 BUN 11 Creatinine 0.9 GFR Calculation 86.1 L Glucose 103 Estimat Average Gl ucose Hemoglobin A1c Calculated Osmolal ity 284 L Calcium 8.7 Total Bilirubin 0.5 AST 171 H ALT 46 H Alkaline Phosphata se 63 Total Protein 6.1 L Albumin 3.9 Globulin 2.2 Triglycerides 142 Cholesterol 158 LDL Cholesterol, C alc 99 HDL Cholesterol 31 L LDL/HDL Ratio 3.19 Cholesterol/HDL Ra leighann 5.10 H TSH 09/01/21 09/01/21 04:50 04:50 WBC RBC Hgb Hct MCV MCH MCHC RDW Plt Count MPV Neut % (Auto) Lymph % (Auto) [place] % (Auto) Eos % (Auto) Baso % (Auto) Neut # (Auto) Lymph # (Auto) [place] # (Auto) Eos # (Auto) Baso # (Auto) Nucleated RBC % (a uto) Nucleated RBCs # Sodium Potassium Chloride Carbon Dioxide Anion Gap BUN Creatinine GFR Calculation Glucose Estimat Average Gl ucose 111 Hemoglobin A1c 5.5 Calculated Osmolal ity Calcium Total Bilirubin AST ALT Alkaline Phosphata se Total Protein Albumin Globulin Triglycerides Cholesterol LDL Cholesterol, C alc HDL Cholesterol LDL/HDL Ratio Cholesterol/HDL Ra leighann TSH 2.21 Vitals: Last Vital Signs Temp 98.5 F 09/02/21 06:00 Pulse 82 09/02/21 06:15 Resp 12 09/02/21 06:15 BP 131/81 09/02/21 06:15 Pulse Ox 93 09/02/21 06:15 Discharge Plan Discharge Patient Disposition: Home Condition: Stable Prescriptions: New clopidogrel 75 mg Tablet 75 mg PO DAILY Qty: 30 RF: 11 atorvastatin 40 mg Tablet 40 mg PO BEDTIME Qty: 30 RF: 0 aspirin 81 mg capsule 81 mg PO DAILY Qty: 30 RF: 0 metoprolol succinate 25 mg Tablet Extended Release 24 Hr 12.5 mg PO DAILY Qty: 30 RF: 0 Discontinued Aspir-81 81 mg Tablet,Delayed Release (Dr/Ec) 324 mg PO ONCE RF: 0 ibuprofen 200 mg Tablet 600 mg PO Q4H PRN (Reason: Pain) RF: 0 Discharge Orders: Discharge Order (Routine); Ordered 09/02/21 Ordered By: Gautam Do Referrals: Ibis Ellis MD [Physician] - 4-7 days (Follow-up early next week with nurse practitioner, then as instructed THIS FOLLOW UP HAS BEEN SCHEDULED ,FOR FOLLOW UP,WOUND CHECK , AND LAB TEST AT TIME OF THIS APPOINTMENT , GARMENT FITTER NURSE FARHEEN TODD FOR DATE OF FRIDAY SEPTEMBER 10, 2021 AT TIME OF 3:15 PM) Mukesh Obando [Primary Care Provider] - 4-7 days (THIS APPOINTMENT HAS BEEN SCHEDULED . SCHEDULED TIME OF Tuesday AT 4:20 PM ) Discharge Diet: Cardiac Discharge Activity: Increase activity as tolerated Patient Instructions: Metoprolol (By mouth), Aspirin (By mouth), Atorvastatin (By mouth) (Lipitor), Clopidogrel (By mouth) (Plavix), Heart Attack (DC), Coronary Angioplasty (DC), How to Stop Smoking (DC), Heart Healthy Diet (DC), Cigarette Smoking and Your Health (GEN), Chest Pain Stoplight, Opioid Safety, Post Angiogram Home Care Instructions Activity Restrictions/Additional Instructions: Take all medicine as prescribed. Follow-up with cardiology early next week Follow-up with primary care provider 3 to 5 days Discharge Attestations Time Spent in Discharge Care*: greater than 30 min Quality Metrics Clinical Quality Measures During this hospital stay, did patient experience: None Coding Level of Care Code Acute g FW DC note Diagnoses Non-ST elevation myocardial infarction (NSTEMI) I21.4 Tobacco dependency F17.200 Hyperglycemia R73.9
[2021-09-02] MEDS: clopidogrel 75 mg Tablet PO (08:27)
[2021-09-02] MEDS: pantoprazole DR 40 mg Tablet PO (08:28)
[2021-09-02] MEDS: metoprolol succinate ER (24 HR) 25 mg Tablet 12.5 MG PO (08:28)
[2021-09-02] MEDS: aspirin 325 mg EC Tablet PO (08:28)
--- NOTE | 2021-09-02 10:33 | PC.CHAP ---
Pastoral Care Encounter/Spiritual Assessment Type of Contact [] Declined media relations associate visit [] Patient/Family/Request visit [] Outpatient visit [] Follow-up visit [] Physician referral [] Code/Alert [x] Routine visit [] Staff referral [] Actively dying [] Patient sleeping [] Family support [] [] Out of room [] Palliative care [] [] Receiving care in room [] Pre-surgical visit [] Trauma [] Long length of stay [x] ICU visit [x] Other: setting up in bed having breakfast Relational/Emotional Strength [] Patient feels connected with others/family/visitors/staff [] Distress [] Loneliness/isolation [] Abandonment Spirituality of Patient [] Person of Esther [] Attends Restoration of their Esther [] Believes in Prayer [] Reads Bible or Latter Day materials [] There are Spiritual issues to be addressed Bus And Rail Operator Interventions [x] Prayer [] Active listening [] Non-anxious presence [] Spiritual/emotional support [] Crisis/trauma care [] Spiritual counseling [] Bereavement support [] Provided bereavement packet [] Provided Bible/devotional materials [] Provided toy/stuffed animal, coloring book to patient or family member [] Provided Communion [] Anointing/[place] [] Salvation [x] Completed spiritual assessment [] Other: Impact on Illness or Injury [] Angry [] Fearful [] Anxious [] Often cries [] Exhaustion [] Unable to work [] Unable to attend gnosticism [] Unable to walk/stand [] Unable to read [] Unable to drive [] Unable to eat/drink [] Unable to sleep [] Unable to be with family [] Patient intubated [] Other: Summary Time spent with patient
--- NOTE | 2021-09-02 12:26 | P.PN_ITS ---
Subjective Subjective: Interval history: No overnight event. For bradycardia initially metoprolol was not started but Dr. Do has added metoprolol since patient heart rate has improved. Medications: Reviewed: Yes Vitals/I&O/Wt Last Vital Signs Temp 97.7 F 09/02/21 11:00 Pulse 67 09/02/21 11:00 Resp 16 09/02/21 11:00 BP 131/86 09/02/21 11:00 Pulse Ox 91 09/02/21 11:00 09/01/21 09/02/21 09/02/21 22:59 06:59 14:59 Intake Total 1416.667 / 1656.667 500 / 500 Output Total 950 / 1100 1450 / 2550 950 / 950 Balance -950 / -860 -33.333 / -893.333 -450 / -450 Weight last 48 hrs Weight 212 lb Weight 210 lb Physical Exam Narrative: EXAM NARRATIVE: GENERAL: Patient is alert, awake and oriented x3. NECK: No jugular vein distension. HEENT: No cyanosis. No icterus. No pallor. HEART: Regular S1 and S2. No murmur, rub or gallop. LUNGS: Clear to auscultate bilaterally. ABDOMEN: Soft, nontender and nondistended. Positive bowel sounds. No guarding, rebound or tenderness. CENTRAL NERVOUS SYSTEM: Grossly nonfocal. EXTREMITIES: Lower extremities without edema bilaterally. Pulses palpable in the lower extremities, both dorsalis pedis and posterior tibial. Right wrist looks good no hematoma Data : 09/02/21 04:20 09/02/21 04:20 A&P Assessment and plan (1) Non-ST elevation myocardial infarction (NSTEMI): Status post drug-eluting stent to mid circumflex with excellent angiographic result for unstable non-ST elevation PA. Continue aspirin statin beta-ofrd clopidogrel. Left ventricle ejection fraction normal at this point LANE inhibitor was not started we can started as an outpatient once he tolerate beta-ford for blood pressure cage. Follow-up with Ms. Radha Hopper in 7 days. Follow-up with cardiology Dr. Ellis in 6 to 8-week Status: Acute (2) Hyperglycemia: Continue statin Status: Acute (3) Tobacco dependency: Advised quitting smoking Status: Acute Attestations Medical Necessity Statement*: From a cardiovascular perspective patient can be discharged home Coding Level of Care Code Established Pt Acute Bung Dropper for Chg Fwd Patient Type Established History Detailed Exam Detailed Medical Decision Making Moderate Complexity Diagnoses Non-ST elevation myocardial infarction (NSTEMI) I21.4 Hyperglycemia R73.9 Tobacco dependency F17.200
== END 2021-09-02 12:19 | disposition home or self-care (01) | DRG 247 ==
LOC: ER 06:06 → CCL 08:49 → ICU 14:04
PROVIDERS: Emergency Medicine; Internal Medicine; Admitting Provider Internal Medicine Cardiovascular Disease; Emergency Provider Family Medicine; PCP Family Medicine; Visit Provider Internal Medicine Cardiovascular Disease
PROC: 027034Z Dilation of Coronary Artery, One Artery with Drug-eluting Intraluminal Device, Percutaneous Approach (ICD-10-PCS; principal; 2021-09-01 09:00)
PROC: 027034Z Dilation of Coronary Artery, One Artery with Drug-eluting Intraluminal Device, Percutaneous Approach (ICD-10-PCS; 2021-09-01 09:00)
DX: I21.4 Non-ST elevation (NSTEMI) myocardial infarction (principal); I25.2 Old myocardial infarction; F17.210 Nicotine dependence, cigarettes, uncomplicated; R73.9 Hyperglycemia, unspecified; Z79.82 Long term (current) use of aspirin
CPT/HCPCS: 36415; 71045; 80048; 80053; 80061; 83036; 84443; 84484; 85025; 85347; 93005; 93306; 93454; 96365; 96375; 96376; 99291; C1725; C1769; C1874; C1887; C1894; C9600; J1644; J2250; J2270; J2405; J3010; J3490; J7030; Q9967

== ENCOUNTER → 2021-09-10 16:00 | Outpatient (BNVA) | payer MEDICARE, SELFPAY | PROVIDERS: PCP Family Medicine; Visit Provider Nurse Practitioner Family | DX: I25.119 Atherosclerotic heart disease of native coronary artery with unspecified angina pectoris (principal) | CPT/HCPCS: 80048 ==

== ENCOUNTER → 2022-06-23 15:40 | Outpatient (BNVA) | payer MEDICARE, SELFPAY | PROVIDERS: PCP Family Medicine; Visit Provider Internal Medicine | DX: I25.119 Atherosclerotic heart disease of native coronary artery with unspecified angina pectoris (principal); K21.9 Gastro-esophageal reflux disease without esophagitis; I10 Essential (primary) hypertension; F17.210 Nicotine dependence, cigarettes, uncomplicated | CPT/HCPCS: 99214 ==

== ENCOUNTER → 2022-12-22 15:22 | Outpatient (BNVA) | payer MEDICARE, SELFPAY | PROVIDERS: PCP Family Medicine; Visit Provider Internal Medicine | DX: I25.119 Atherosclerotic heart disease of native coronary artery with unspecified angina pectoris (principal); I10 Essential (primary) hypertension; K21.9 Gastro-esophageal reflux disease without esophagitis; F17.210 Nicotine dependence, cigarettes, uncomplicated; I25.2 Old myocardial infarction; Z79.82 Long term (current) use of aspirin | CPT/HCPCS: 99214 ==

== ENCOUNTER → 2023-06-29 15:24 | Outpatient (BNVA) | payer MEDICARE, SELFPAY | PROVIDERS: PCP Family Medicine; Visit Provider Internal Medicine | DX: I25.119 Atherosclerotic heart disease of native coronary artery with unspecified angina pectoris (principal); K21.9 Gastro-esophageal reflux disease without esophagitis; I10 Essential (primary) hypertension; F17.210 Nicotine dependence, cigarettes, uncomplicated | CPT/HCPCS: 99214 ==

== ENCOUNTER → 2024-02-22 13:29 | Outpatient (BNVA) | payer MEDICARE, SELFPAY | PROVIDERS: PCP Family Medicine; Visit Provider Internal Medicine | DX: I25.119 Atherosclerotic heart disease of native coronary artery with unspecified angina pectoris (principal); K21.9 Gastro-esophageal reflux disease without esophagitis; I10 Essential (primary) hypertension; Z01.818 Encounter for other preprocedural examination; F17.210 Nicotine dependence, cigarettes, uncomplicated | CPT/HCPCS: 99214 ==

== ENCOUNTER → 2024-09-03 09:57 | Outpatient (BNVA) | payer MEDICARE, SELFPAY | PROVIDERS: PCP Family Medicine; Visit Provider Nurse Practitioner Family | DX: I25.119 Atherosclerotic heart disease of native coronary artery with unspecified angina pectoris (principal); I10 Essential (primary) hypertension; E04.1 Nontoxic single thyroid nodule; F17.200 Nicotine dependence, unspecified, uncomplicated | CPT/HCPCS: 99214 ==

== ENCOUNTER → 2025-05-16 14:26 | Outpatient (BNVA) | payer MEDICARE, SELFPAY | PROVIDERS: PCP Family Medicine; Visit Provider Internal Medicine | DX: I25.119 Atherosclerotic heart disease of native coronary artery with unspecified angina pectoris (principal); K21.9 Gastro-esophageal reflux disease without esophagitis; I10 Essential (primary) hypertension | CPT/HCPCS: 99214 ==